=== PATIENT | female | born 1950 | race Caucasian/White ===

== ENCOUNTER 2017-09-07 09:16 | Outpatient (RCR) | payer MEDICARE ==
[~2017-09-07 09:16] MED LIST: BACTRIM DS TAB1 EACH PO; CALCIUM PO; CALCIUM500 M3 PO; CELEXA40 MG PO; CITALOPRAM HBR40 MG PO; FLUTICASONE SPRAY NS; KEFLEX500 MG PO; MULTIVITAMINS1 EAC7 PO; MUPIROCIN 2% OINT 22 GM TUBE ONE; NASOCORT; NORCO 5-325 TA1 EACH PO; VITAMIN B12-FO1 EACH PO; Z.0.CITALOPRAM HBR20 PO; Z.0.COZAAR50 MG PO; Z.0.LOVENOX40 MG/0.4 SQ; Z.0.PROTONIX40 MG PO; Z.0.TOPROL XL50 MG PO; Z.0.VICODIN 5-5001 E PO
== END 2017-09-20 ==
LOC: WCC 09:16
PROVIDERS: ATTEND Plastic Surgery
DX: T81.89XA Other complications of procedures, not elsewhere classified, initial encounter (principal); Y83.8 Other surgical procedures as the cause of abnormal reaction of the patient, or of later complication, without mention of misadventure at the time of the procedure; S82.454A Nondisplaced comminuted fracture of shaft of right fibula, initial encounter for closed fracture; I10 Essential (primary) hypertension; Z72.0 Tobacco use
CPT/HCPCS: G0463 ×2

== ENCOUNTER 2017-09-18 10:00 | Outpatient (RCR) | payer MEDICARE ==
[~2017-09-18 10:00] MED LIST changes: -MUPIROCIN 2% OINT 22 GM TUBE ONE
== END 2017-09-20 ==
LOC: PT 10:00
PROVIDERS: ATTEND Specialist
DX: M84.471G Pathological fracture, right ankle, subsequent encounter for fracture with delayed healing (principal); M25.571 Pain in right ankle and joints of right foot; M25.671 Stiffness of right ankle, not elsewhere classified; R26.2 Difficulty in walking, not elsewhere classified; M62.81 Muscle weakness (generalized)
CPT/HCPCS: 97110 ×2; 97140; 97162; G8978; G8979

== ENCOUNTER 2017-10-12 09:20 | Outpatient (RCR) | payer MEDICARE ==
[~2017-10-12 09:20] MED LIST changes: +COLLAGENASE OINTMENT 30 GM TUBE ONE; +LIDOCAINE/PRILOCAINE 2.5-2.5% KIT ONE; +MUPIROCIN 2% OINT 22 GM TUBE ONE
[2017-10-12] MEDS ORDERED: MUPIROCIN 2% OINT 22 GM TUBE ONE (15:18)
[2017-10-12] MEDS ORDERED: COLLAGENASE OINTMENT 30 GM TUBE ONE (15:18)
[2017-10-12] MEDS ORDERED: LIDOCAINE VISC 2% SOLN 15 ML UDC ONE (15:18)
== END 2017-10-21 ==
LOC: WCC 09:20
PROVIDERS: ATTEND Plastic Surgery
DX: T81.89XA Other complications of procedures, not elsewhere classified, initial encounter (principal); Y83.8 Other surgical procedures as the cause of abnormal reaction of the patient, or of later complication, without mention of misadventure at the time of the procedure; S82.454A Nondisplaced comminuted fracture of shaft of right fibula, initial encounter for closed fracture; I10 Essential (primary) hypertension; Z72.0 Tobacco use

== ENCOUNTER → 2017-10-21 | Outpatient (RCR) | payer MEDICARE ==
[~2017-10-21] MED LIST changes: -COLLAGENASE OINTMENT 30 GM TUBE ONE; -LIDOCAINE/PRILOCAINE 2.5-2.5% KIT ONE; -MUPIROCIN 2% OINT 22 GM TUBE ONE
== END ==
LOC: PT 09-23 09:51
PROVIDERS: ATTEND Specialist
DX: M84.471G Pathological fracture, right ankle, subsequent encounter for fracture with delayed healing (principal); M25.571 Pain in right ankle and joints of right foot; M25.671 Stiffness of right ankle, not elsewhere classified; R26.2 Difficulty in walking, not elsewhere classified; M62.81 Muscle weakness (generalized)
CPT/HCPCS: 97110 ×9; 97139; 97140 ×8; G8978; G8979

== ENCOUNTER 2017-11-09 08:52 | Outpatient (RCR) | payer MEDICARE | END 2017-11-18 | LOC: WCC 08:52 | PROVIDERS: ATTEND Plastic Surgery | DX: T81.89XA Other complications of procedures, not elsewhere classified, initial encounter (principal); Y83.8 Other surgical procedures as the cause of abnormal reaction of the patient, or of later complication, without mention of misadventure at the time of the procedure; S82.454A Nondisplaced comminuted fracture of shaft of right fibula, initial encounter for closed fracture; I10 Essential (primary) hypertension; Z72.0 Tobacco use ==

== ENCOUNTER 2017-11-13 09:53 | Outpatient (RCR) | payer MEDICARE | END 2017-11-18 | LOC: PT 09:53 | PROVIDERS: ATTEND Specialist | DX: M84.471G Pathological fracture, right ankle, subsequent encounter for fracture with delayed healing (principal); M25.571 Pain in right ankle and joints of right foot; M25.671 Stiffness of right ankle, not elsewhere classified; M62.81 Muscle weakness (generalized); R26.2 Difficulty in walking, not elsewhere classified | CPT/HCPCS: 97110 ×7; 97140 ×4; G8979; G8980 ==

== ENCOUNTER → 2019-07-26 | Day surgery (SDC) | payer MEDICARE ==
[~2019-07-26] MED LIST changes: +AMLODIPINE BESYL5 MG PO; +FENTANYL CITRATE/PF 100MCG/2 ML INJ ONE; +LIDOCAINE HCL 2% LOCAL INJ 5 ML SDV VIAL INJ ONE; +MIDAZOLAM HCL 2 MG/2 ML VIAL ONE; +OR PHACO EYE KIT ONE; +PREOP PHACO EYE KIT ONE; +PROPOFOL IV EMULSION 10 MG/ML 50 ML VIAL ONE
--- OUTSIDE RECORDS SUMMARY | 2019-07-26 10:19 | XMS REPORT ---
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 Allergies, Adverse Reactions, Alerts This patient has no known allergies or adverse reactions. Medications This patient has no known medications. Results Test Description Test Time Test Comments Text Results Atomic Results Result Comments CHEST 2 VIEWS [place] [address] Patient Name: FRANSISCA RODRIGUEZ MR #: [id number] : 1950 Age/Sex: 66/F Req #: [id number] Adm Physician: Ordered by: FRANKIE RODRIGUEZ MD Report #: [id number] Location: OR Room/Bed: Procedure: [id number] DX/CHEST 2 VIEWS Exam Date: 05/26/17 Exam Time: 609 REPORT STATUS: Signed PROCEDURE: X-RAY CHEST, TWO VIEWS COMPARISON: None. INDICATIONS: PRE-OP FINDINGS: LUNGS: No consolidations or edema. PLEURA: No effusions or pneumothorax. HEART T MEDIASTINUM: The heart is within normal size-limits. BONES T SOFT TISSUES: No acute findings. Right humeral prosthesis is partially visualized. CONCLUSION: No acute thoracic abnormality. Casie Warren D.O. Dictated by: Casie Warren D.O. on 05/26/2017 at 8:00 Electronically approved by: Casie Warren D.O. on 05/26/2017 at 8:00 Dictated By: CASIE WARREN DO 9 Transcribed By: PRIMO on 05/26/17799 COPY TO: FRANKIE RODRIGUEZ MD
[2019-07-26 14:30] VITALS: BP 140/78
== END | disposition home or self-care (01) ==
LOC: OR 10:15
PROVIDERS: ATTEND Ophthalmology
DX: H25.12 Age-related nuclear cataract, left eye (principal); I25.10 Atherosclerotic heart disease of native coronary artery without angina pectoris; I25.2 Old myocardial infarction; I10 Essential (primary) hypertension; M19.90 Unspecified osteoarthritis, unspecified site; F41.9 Anxiety disorder, unspecified; F32.9 Major depressive disorder, single episode, unspecified; Z88.0 Allergy status to penicillin
CPT/HCPCS: 66984; J2001; J2250; J2704; J3010

== ENCOUNTER → 2019-08-09 | Day surgery (SDC) | payer MEDICARE ==
[~2019-08-09] MED LIST changes: -LIDOCAINE HCL 2% LOCAL INJ 5 ML SDV VIAL INJ ONE; -PROPOFOL IV EMULSION 10 MG/ML 50 ML VIAL ONE
[2019-08-09 12:34] VITALS: BP 129/77
== END | disposition home or self-care (01) ==
LOC: OR 09:05
PROVIDERS: ATTEND Ophthalmology
DX: H25.11 Age-related nuclear cataract, right eye (principal); I10 Essential (primary) hypertension; F32.9 Major depressive disorder, single episode, unspecified; F41.9 Anxiety disorder, unspecified
CPT/HCPCS: 66984; J2250; J3010; V2632

== ENCOUNTER → 2020-06-29 | Outpatient (CLI) | payer MEDICARE, OTHER ==
[~2020-06-29] MED LIST changes: -FENTANYL CITRATE/PF 100MCG/2 ML INJ ONE; -MIDAZOLAM HCL 2 MG/2 ML VIAL ONE; -OR PHACO EYE KIT ONE; -PREOP PHACO EYE KIT ONE
== END ==
LOC: CT 15:49
PROVIDERS: ATTEND Specialist
DX: S80.01XA Contusion of right knee, initial encounter (principal)

== ENCOUNTER → 2021-11-18 | Outpatient (RCR) | payer MEDICARE, OTHER | LOC: PT 11-08 14:58 | PROVIDERS: ATTEND Specialist | DX: M17.11 Unilateral primary osteoarthritis, right knee (principal) ==

== ENCOUNTER 2021-12-17 09:57 | Outpatient (RCR) | payer MEDICARE, OTHER | END 2021-12-19 | LOC: PT 09:57 | PROVIDERS: ATTEND Specialist | DX: M17.11 Unilateral primary osteoarthritis, right knee (principal) | CPT/HCPCS: 97139 ==

== ENCOUNTER → 2021-12-25 | Outpatient (CLI) | payer MEDICARE, OTHER | LOC: MRI 08:23 | PROVIDERS: ATTEND Specialist | DX: M17.11 Unilateral primary osteoarthritis, right knee (principal); M24.661 Ankylosis, right knee ==

== ENCOUNTER 2022-01-03 10:59 | Outpatient (RCR) | payer MEDICARE, OTHER | END 2022-01-18 | LOC: PT 10:59 | PROVIDERS: ATTEND Specialist | DX: M17.11 Unilateral primary osteoarthritis, right knee (principal) | CPT/HCPCS: 97139 ==

== ENCOUNTER → 2022-04-10 | Outpatient (CLI) | payer MEDICARE, OTHER ==
[~2022-04-10] MED LIST changes: +LEXAPRO20 MG PO
[2022-04-10 10:50] LABS: BASOPHILS # (AUTO) 0.1 (0.0-0.1); BASOPHILS % 0.8 % (0.0-1.0); EOSINOPHILS # (AUTO) 0.2 (0.0-0.4); HEMATOCRIT 44.4 % (34.2-44.1); HEMOGLOBIN 14.8 g/dL (12.0-16.0); LYMPHOCYTES # (AUTO) 1.5 (1.0-3.2); LYMPHOCYTES % 18.4 % (18.0-39.1); MEAN CORPUSCULAR HEMOGLOBIN 31.4 pg (28-32); MEAN CORPUSCULAR HGB CONC 33.3 g/dL (31-35); MEAN CORPUSCULAR VOLUME 94.3 fL (81-99); MONOCYTES # (AUTO) 0.5 (0.2-0.8); MONOCYTES % 6.4 % (4.4-11.3); NEUTROPHILS # (AUTO) 5.7 (2.1-6.9); NEUTROPHILS % 71.1 % (38.7-80.0); PLATELET COUNT 236 x10e3/uL (140-360); RED BLOOD COUNT 4.71 x10e6/uL (3.6-5.1); RED CELL DISTRIBUTION WIDTH 12.9 % (11.7-14.4)
== END ==
LOC: RAD 09:57 → EDSTATUS 04-14 11:00
PROVIDERS: ATTEND Internal Medicine Gastroenterology
DX: Z01.810 Encounter for preprocedural cardiovascular examination (principal); Z01.812 Encounter for preprocedural laboratory examination; K62.5 Hemorrhage of anus and rectum; R19.7 Diarrhea, unspecified; Z12.11 Encounter for screening for malignant neoplasm of colon
CPT/HCPCS: 0223U; 36415; 85025; 93005

== ENCOUNTER → 2022-07-07 | Outpatient (CLI) | payer MEDICARE | LOC: RAD 09:53 | PROVIDERS: ATTEND Specialist | DX: S52.612A Displaced fracture of left ulna styloid process, initial encounter for closed fracture (principal) ==